=== PATIENT | female | born 1930 | race Caucasian/White ===

== ENCOUNTER 2016-05-14 12:43 | Inpatient (IN) | payer MEDICARE, OTHER ==
[~2016-05-14] VITALS: Ht 157.5 cm; Wt 63.5 kg
--- NOTE | 2016-05-14 12:49 | NUR ---
Pt admitted to room 319 at this time via ambulation from Dr. Weaver office accompanied by Daughter Susan.
[2016-05-14 13:13] VITALS: BP 159/73
--- NOTE | 2016-05-14 15:38 | NUR ---
Dr. Prakash at bedside.
[2016-05-14] MEDS ORDERED: ONDANSETRON 2 MG/ML (Z0FRAN) 2 ML VIAL IV PRN (15:55)
[2016-05-14] MEDS ORDERED: ACETAMINOPHEN 325 MG TAB (TYLENOL) PO PRN (15:55)
[2016-05-14] MEDS ORDERED: NS FLUSH 10 ML PRN IV (16:05)
[2016-05-14] MEDS ORDERED: NS FLUSH 3 ML PRN IV (16:05)
[2016-05-14 16:18] VITALS: BP 159/73
[2016-05-14 16:54] VITALS: BP 145/67
[2016-05-14] MEDS ORDERED: NS IV 500 ML 500 ML IV SCH (17:00)
--- NOTE | 2016-05-14 18:20 | NUR ---
Pt sitting upright in bed, eating supper meal. IVF infusing as ordered. daughter at bedside.
[2016-05-14 19:47] VITALS: BP 145/65
--- NOTE | 2016-05-14 19:55 | NUR ---
Pt is resting in bed on her right side visiting with her daughter and son-in-law. Alert and oriented x 4, has glaucoma, and receives injections in left eye, pupils are not equal, pt reports this is normal for her. Pt is able to move all extremities, mild weakness noted at this time. Denies pain or discomfort. IV is infusing without difficulty, no redness, swelling, or s/s of infection noted at this time. Call light is in reach, bed alarm is on, will continue to monitor frequently.
[2016-05-14] MEDS: FAMOTIDINE 20 MG (PEPCID) TABLET PO SCH (22:49)
[2016-05-14] MEDS: LATANOPROST 0.005% OPHTHALMIC SOLN (XALATAN) 2.5 ML BTL OU SCH (22:49)
[2016-05-14] MEDS: SIMvastatin 20 MG (ZOCOR) TAB PO SCH (22:49)
[2016-05-15] VITALS (8 sets, daily range): BP systolic 160–187; BP diastolic 70–90
--- NOTE | 2016-05-15 00:01 | NUR ---
Pt's 2300 Na is 125, received order to give NS 1 liter at 75ml/hr x1 bag.
--- NOTE | 2016-05-15 04:20 | NUR ---
Pt is resting in bed asleep, has been sleeping most of this shift. Denies pain or discomfort during this shift. Call light is in reach, will continue to monitor.
[2016-05-15 06:16] LABS: MEAN CORPUSCULAR VOLUME 89 FL (80-100); MEAN PLATELET VOLUME 8.5 FL (6.0-9.5); PLATELET COUNT 169 10^3uL (150-450)
[2016-05-15 06:32] LABS: MEAN CORPUSCULAR HEMOGLOBIN 32.3 PG (26.0-34.0); MEAN CORPUSCULAR HGB CONC 36.2 g/dL (31.0-37.0)
[2016-05-15 07:05] LABS: BAND NEUTROPHILS % 0 % (0-6); EOSINOPHILS % 4 % (0-4); LYMPHOCYTES # 1.2 #; MONOCYTES # 0.3 #; MONOCYTES % 16 % (3-11); RBC MORPH NORMAL (NORMAL); SEGMENTED NEUTROPHILS % 36 % (51-67); TOTAL CELLS COUNTED 100
[2016-05-15 07:18] LABS: ALBUMIN 3.4 g/dL (3.4-5.0); ANION GAP 9.9 MEQ/L (3-15); CALCULATED IONIZED CALCIUM 4.1 mg/dL (3.8-4.6); TOTAL PROTEIN 6.1 g/dL (6.4-8.5)
[2016-05-15] MEDS ORDERED: lisINopril 10 MG (PRINIVIL) TABLET PO SCH (09:00)
[2016-05-15] MEDS: NS FLUSH 3 ML DAILY IV SCH (09:00)
--- NOTE | 2016-05-15 09:05 | NUR ---
REPORTS FEELING LIGHTHEADED WHILE SITTING UP IN CHAIR. P-84, 02 SAT 98%, BP-159/80 R-18. ASSISTED BACK TO BED PER PATIENT REQUEST. GAIT STEADY.
[2016-05-15] MEDS: TIMOLOL 0.5% OU SCH (09:38)
[2016-05-15] MEDS: FAMOTIDINE 20 MG (PEPCID) TABLET PO SCH ×2 (09:38→20:28)
--- NOTE | 2016-05-15 10:23 | NUR ---
NUTRITION ASSESSMENT Level 1 Patient: Yolette Staples Age/Sex: 85/F Date Screened: 05-15-16 Weight: 142.3#/64.7 kg Height: 62 inches Primary Diagnosis: hyponatremia Diet Order: regular Relevant labs: sodium 131, glucose 91 Food allergies: N Nutrition Assessment Criteria Age over 80: 4 points Body Mass Index (BMI) under 19: N Admission Screening Indicates Risk? N Moderate/High Risk Diagnosis: N TPN or PPN: N NPO or clear liquid diet: N Serum Glucose <70 or >180: N Hgb A1c >6.7: N/A Total: 4 points Risk Screen: __ Patient at low nutritional risk based on available data; reevaluate in 5-7 days _X_ Patient at moderate nutritional risk based on available data; reevaluate in 3-5 days __ Patient at high nutritional risk; complete Nutrition Assessment within 48 hours of admission. Comments: Pt. reports some weight gain, no loss. Noted she has a history of dysphagia but no problems were identified with a modified barium swallow study in 2015. Will monitor intake for adequacy and reassess as documented above.
--- NOTE | 2016-05-15 11:39 | NUR ---
MED REC COMPLETE--current med list obtained from patient report (written list and interview). Completed by Nati Adamson, Pharm. D. Candidate 2017.
[2016-05-15] MEDS ORDERED: SODIUM CHLORIDE 250 ML ONE (12:26)
[2016-05-15] MEDS ORDERED: SODIUM CHLORIDE 250 ML IV ONE (12:30)
--- NOTE | 2016-05-15 16:00 | NUR ---
CONTINUE NS AT 75/HR VORB DR. CEJA/STEVEN OLIVAS
--- NOTE | 2016-05-15 17:50 | NUR ---
Patient complains she doesn't feel well. Tearful. denies dizziness/pain.Bp-200/100, 198/100 both manual and sitting. bp-195/[address] Prakash notified. Get EKG vorb Dr. Prakash/Sarah jones RN. Call made for EKG. Patient assisted to bed. Gait steady. Skin w/p/d. Alert and oriented x4.
[2016-05-15] MEDS ORDERED: LORazepam 2 MG/ML (ATIVAN) 1 ML VIAL IV ONE (18:15)
[2016-05-15] MEDS ORDERED: meTOprolol TARTRATE 50 MG (LOPRESSOR) TABLET PO ONE (18:15)
[2016-05-15] MEDS ORDERED: LORazepam 0.5 MG (ATIVAN) TABLET ONE (19:14)
--- NOTE | 2016-05-15 19:20 | NUR ---
Informed of meds given for BP and anxiety. Patient is calm.Family at bedside.
[2016-05-15] MEDS: SIMvastatin 20 MG (ZOCOR) TAB PO SCH (20:28)
[2016-05-15] MEDS: LATANOPROST 0.005% OPHTHALMIC SOLN (XALATAN) 2.5 ML BTL OU SCH (20:29)
[2016-05-16 00:16] VITALS: BP 186/90
[2016-05-16 04:07] VITALS: BP 174/88
[2016-05-16 06:17] LABS: MEAN CORPUSCULAR VOLUME 89 FL (80-100); MEAN PLATELET VOLUME 8.6 FL (6.0-9.5); PLATELET COUNT 207 10^3uL (150-450)
[2016-05-16 06:31] LABS: ALBUMIN 3.7 g/dL (3.4-5.0); ANION GAP 12.7 MEQ/L (3-15); CALCULATED IONIZED CALCIUM 4.1 mg/dL (3.8-4.6); MAGNESIUM* 2.1 mg/dL (1.6-2.3); PHOSPHORUS 3.7 mg/dL (2.4-4.9); TOTAL PROTEIN 6.5 g/dL (6.4-8.5)
--- NOTE | 2016-05-16 06:31 | NUR ---
Patient rests in bed without needs throughout night. NS running without issue in IV. No needs at this time.
[2016-05-16 06:50] LABS: MEAN CORPUSCULAR HEMOGLOBIN 31.8 PG (26.0-34.0)
[2016-05-16 07:34] LABS: BAND NEUTROPHILS % 0 % (0-6); EOSINOPHILS % 8 % (0-4); MONOCYTES # 0.4 #; MONOCYTES % 12 % (3-11); RBC MORPH NORMAL (NORMAL); SEGMENTED NEUTROPHILS % 37 % (51-67); TOTAL CELLS COUNTED 100
[2016-05-16 07:54] VITALS: BP_SYST 197; BP_SYST 198; BP_DIAS 80; BP_DIAS 84
--- NOTE | 2016-05-16 08:15 | NUR ---
At this time the patient's BP is high sitting (198/84) and standing (197/80).
[2016-05-16] MEDS ORDERED: amLODIPine 10 MG (NORVASC) TAB PO SCH (09:00)
[2016-05-16] MEDS ORDERED: lisINopril 10 MG (PRINIVIL) TABLET PO SCH (09:00)
[2016-05-16] MEDS: NS FLUSH 3 ML DAILY IV SCH (09:00)
[2016-05-16] MEDS: TIMOLOL 0.5% OU SCH (10:11)
[2016-05-16] MEDS: FAMOTIDINE 20 MG (PEPCID) TABLET PO SCH (10:11)
--- NOTE | 2016-05-16 13:10 | NUR ---
Sitting BP= 183/66 and standing BP= 149/59. Educated patient and family on the importance of checking BP standing as well due to age and safety issues related to lightheadedness upon standing.
--- NOTE | 2016-05-16 14:25 | NUR ---
Gave the patient and her daughter discharge instructions. Informed them that Dr. Paul has called new prescriptions to [facility]. Educated them on the importance of follow up with PCP this week and of continued BP monitoring. Both demonstrated verbal understanding. Patient denies any valuables in the safe.
--- NOTE | 2016-05-16 14:37 | NUR ---
Patient dismissed per wheelchair accompanied by a EPIDEMIOLOGIST and her daughter.
== END 2016-05-16 14:37 | disposition home or self-care (01) | DRG 641 ==
LOC: MED/SURG 12:43
PROVIDERS: ADMIT Family Medicine; ATTEND Family Medicine
DX: E87.1 Hypo-osmolality and hyponatremia (principal); E86.0 Dehydration; R10.9 Unspecified abdominal pain; Z66 Do not resuscitate; I10 Essential (primary) hypertension; E78.5 Hyperlipidemia, unspecified; K21.9 Gastro-esophageal reflux disease without esophagitis; J30.9 Allergic rhinitis, unspecified; H40.9 Unspecified glaucoma; Z95.0 Presence of cardiac pacemaker
CPT/HCPCS: 36415; 80053; 80069; 83735; 83930; 83935; 84100; 84295; 84300; 84443; 85025; 93005

== ENCOUNTER → 2016-05-21 | Outpatient (CLI) | payer MEDICARE, OTHER ==
[~2016-05-21] VITALS: Ht 157.5 cm; Wt 52.2 kg
[~2016-05-21] MED LIST: COSYNTROPIN 0.25 MG/ML (CORTROSYN) VIAL IV ONE; NS FLUSH 10 ML PRN IV; NS FLUSH 3 ML PRN IV
[2016-05-21 10:20] VITALS: BP 133/65
== END ==
LOC: LAB 09:41
PROVIDERS: ATTEND Family Medicine
DX: E87.1 Hypo-osmolality and hyponatremia (principal)
CPT/HCPCS: 36000; 82533; 96374; J0834

== ENCOUNTER → 2016-06-15 | Outpatient (CLI) | payer MEDICARE, OTHER | LOC: RAD 08:42 | PROVIDERS: ATTEND Family Medicine | DX: F03.90 Unspecified dementia, unspecified severity, without behavioral disturbance, psychotic disturbance, mood disturbance, and anxiety (principal) | CPT/HCPCS: 70470; Q9967 ==